=== PATIENT | female | born 1990 | race Two or more races ===

== ENCOUNTER 2018-08-27 22:05 | Emergency (ER) | payer MEDICAID ==
[~2018-08-27] VITALS: Ht 154.9 cm; Wt 59.4 kg
[2018-08-27 22:22] VITALS: BP 144/70
== END 2018-08-28 04:00 | disposition left against medical advice (07) ==
LOC: ER 22:05
DX: N93.8 Other specified abnormal uterine and vaginal bleeding (principal); Z53.21 Procedure and treatment not carried out due to patient leaving prior to being seen by health care provider

== ENCOUNTER 2019-02-10 22:11 | Emergency (ER) | payer MEDICAID ==
[~2019-02-10] VITALS: Ht 154.9 cm; Wt 60.3 kg
[2019-02-10 22:31] VITALS: BP 147/85
[2019-02-10 23:24] LABS: Basophils # (auto) 0 uL; Basophils % (auto) 0.6 % (0.0-2.0); Eosinophils # (auto) 0.1 uL; Eosinophils % (auto) 0.8 % (0.0-7.0); Hematocrit 42.4 % (36.0-46.0); Hemoglobin 14.5 g/dL (12.2-16.2); Lymphocytes # (auto) 1.8 uL; Lymphocytes % (auto) 21.7 % (10.0-50.0); Mean Corpuscular Hemoglobin 31.1 pg (28.0-32.0); Mean Corpuscular Hgb Conc. 34.1 g/dL (32.0-36.0); Mean Corpuscular Volume 91.2 fL (80.0-100.0); Monocytes # (auto) 0.5 uL; Monocytes % (auto) 6.4 % (0.0-12.0); Neutrophils % (auto) 70.5 % (37.0-80.0); Platelet Count (auto) 283 10^3/uL (140-450); Red Blood Cells 4.65 10^6/uL (4.0-5.20); Red Cell Distribution Width 13.7 % (11.8-14.3); White Blood Cell 8.5 10^3/uL (4.4-10.8)
[2019-02-10 23:38] LABS: Albumin 4.4 g/dL (3.4-5.0); BUN/Creatinine Ratio 14.9; Potassium 3.8 mmol/L (3.5-5.1)
[2019-02-10 23:40] LABS: Bilirubin, Total 0.4 mg/dL (0.2-1.0)
[2019-02-11 01:37] LABS: Urine Bacteria NONE SEEN /hpf (None Seen); Urine Blood Negative /uL (Negative); Urine Specific Gravity 1.005 (1.001-1.035); Urine WBC <1 /hpf (0 - 5)
== END 2019-02-11 06:44 | disposition left against medical advice (07) ==
LOC: ER 22:15
DX: R10.9 Unspecified abdominal pain (principal); Z53.21 Procedure and treatment not carried out due to patient leaving prior to being seen by health care provider
CPT/HCPCS: 36415; 74176; 80053; 81001; 81025; 84702; 85025

== ENCOUNTER 2022-07-24 22:58 | Emergency (ER) | payer MEDICAID ==
[~2022-07-24] VITALS: Ht 154.9 cm; Wt 66.0 kg
[2022-07-24 23:16] VITALS: BP 142/84
== END 2022-07-25 03:20 | disposition left against medical advice (07) ==
LOC: ER 22:58
DX: H92.01 Otalgia, right ear (principal); R09.81 Nasal congestion; Z53.21 Procedure and treatment not carried out due to patient leaving prior to being seen by health care provider